=== PATIENT | male | born 1940 | race Two or more races ===

== ENCOUNTER 2017-01-23 21:15 | Inpatient (IN) | payer OTHER ==
[2017-01-23] MEDS ORDERED: MORPHINE SULFATE 4 MG/ML SYRINGE IV PRN (21:16)
[2017-01-23] MEDS ORDERED: HEPARIN SODIUM,PORCINE 5,000 UNIT/ML 1 ML VIAL IV ONE (21:16)
[2017-01-23] MEDS ORDERED: NITROGLYCERIN OINT 1 INCH/GM PACKET TOPICAL STA (21:16)
[2017-01-23] MEDS ORDERED: NITROGLYCERIN SL TABS 0.4 MG TAB SUBLINGUAL PRN (21:16)
[2017-01-23] MEDS ORDERED: HEPARIN SODIUM,PORCINE 5,000 UNIT/ML 1 ML VIAL IV PRN (21:16)
[2017-01-23] MEDS ORDERED: ASPIRIN 81 MG CHEW PO STA (21:16)
[2017-01-23] MEDS ORDERED: LABETALOL 5 MG/ML VIAL MDV IVP STA (21:24)
[2017-01-23] MEDS ORDERED: CLOPIDOGREL 75 MG TAB PO STA (21:30)
[2017-01-23] MEDS ORDERED: HEPARIN SODIUM,PORCINE/D5W PMX 25,000 UNIT in DEXTROSE/WATER 1 500ML.BAG IV SCH (21:30)
[2017-01-23 21:34] LABS: CH 30.1; CHCM 35.3; HCT 38.6 % (39.0-53.0); HDW 3.44; HGB 13.7 gm/dL (13.0-17.5); MCH 30.6 pg (25.0-35.0); MCHC 35.6 g/dL (31.0-37.0); MCV 85.9 fL (80.0-100.0); Poikilocytosis Slight; RBC 4.49 m/uL (4.30-5.90); RDW 13.2 % (11.5-15.5); WBC 10.2 k/uL (3.8-10.6)
[2017-01-23] MEDS ORDERED: ONDANSETRON 4 MG/2 ML VIAL IVP PRN (21:39)
--- NOTE | 2017-01-23 21:39 | ED ---
General Adult HPI - General Chief complaint: Dizziness Stated complaint: Syncope Time Seen by Provider: 01/23/17 21:16 Source: EMS, RN notes reviewed, old records reviewed Mode of arrival: EMS Limitations: no limitations - History of Present Illness Initial comments: This is a 76-year-old male to the ER for evaluation. This patient presents today for evaluation of near syncopal event. Patient has history of CAD, 3 stents, most Ran on 10 years ago. She was indented today after a long day of golf and had a syncopal event at the table. Patient said he felt very diaphoretic very lightheaded and weak. Family states he did pass out. Patient denied chest pain or shortness of breath. This is been taking all medications as prescribed. Again at this time he has no headache chest pain shortness of breath or abdominal pain. He did feel nauseous prior to the event and during the event, still feeling nauseous. - Related Data Allergies Allergy/AdvReac Type Severity Reaction Status Date / Time No Known Allergies Allergy Verified 01/23/17 21:29 Review of Systems ROS Statement: Those systems with pertinent positive or pertinent negative responses have been documented in the HPI. ROS Other: All systems not noted in ROS Statement are negative. Past Medical History Past Medical History: Hypertension History of Any Multi-Drug Resistant Organisms: None Reported Additional Past Surgical History / Comment(s): stent placement Past Psychological History: No Psychological Hx Reported Smoking Status: Never smoker Past Alcohol Use History: None Reported Past Drug Use History: None Reported General Exam Limitations: no limitations General appearance: alert, in no apparent distress, anxious Head exam: Present: atraumatic, normocephalic, normal inspection Eye exam: Present: normal appearance, PERRL, EOMI. Absent: scleral icterus, conjunctival injection, periorbital swelling ENT exam: Present: normal exam, mucous membranes moist Neck exam: Present: normal inspection. Absent: tenderness, meningismus, lymphadenopathy Respiratory exam: Present: normal lung sounds bilaterally. Absent: respiratory distress, wheezes, rales, rhonchi, stridor Cardiovascular Exam: Present: regular rate, normal rhythm, normal heart sounds. Absent: systolic murmur, diastolic murmur, rubs, gallop, clicks GI/Abdominal exam: Present: soft, normal bowel sounds. Absent: distended, tenderness, guarding, rebound, rigid Extremities exam: Present: normal inspection, full ROM, normal capillary refill. Absent: tenderness, pedal edema, joint swelling, calf tenderness Back exam: Present: normal inspection Neurological exam: Present: alert, oriented X3, CN II-XII intact Psychiatric exam: Present: normal affect, normal mood Skin exam: Present: warm, dry, intact, normal color. Absent: rash Course Vital Signs 01/23/17 21:17 Temperature 99.2 F Pulse Rate 88 Respiratory 20 Rate Blood Pressure 183/83 O2 Sat by Pulse 99 Oximetry Medical Decision Making - Medical Decision Making 76 male to the ED for evaluation of syncopal event. Patient had syncope with diaphoresis and weakness. Near syncope per patient but per bystanders he didn' t pass out. Patient denies chest pain but did become diaphoretic. Patient brought to emergency room, EKG shows no changes, will be admitted for cardiac observation - Radiology Data Radiology results: report reviewed (cxr negative for acute disease), image reviewed Critical Care Time Critical Care Time: Yes Total Critical Care Time: 31 Disposition Clinical Impression: Syncope Disposition: ADMITTED IP TO THIS [facility] Condition: Fair Referrals: None,Stated [Primary Care Provider] - 1-2 days
--- NOTE | 2017-01-23 21:40 | XR ---
EXAMINATION TYPE: XR chest 1V portable DATE OF EXAM: 01/23/2017 COMPARISON: NONE HISTORY: Pain TECHNIQUE: Single AP portable upright frontal view of the chest is obtained. FINDINGS: The hemidiaphragms are elevated at the moment of x-ray exposure, consistent with low lung inflation. This tends to crowd the pulmonary vasculature and so, therefore, no definite acute process . Nevertheless, there is subtle silhouetting of the pulmonary vasculature bilaterally and this can be seen with subtle interstitial phase pulmonary edema. There is no focal air space opacity, pleural effusion, or pneumothorax seen. The cardiac silhouette size is within normal limits. The osseous structures are intact. IMPRESSION: No definite acute process, as discussed.
[2017-01-23 21:42] LABS: ALT 39 U/L (21-72); AST 38 U/L (17-59); Alkaline Phosphatase 67 U/L (38-126); Anion Gap 12 mmol/L; Blood Urea Nitrogen 23 mg/dL (9-20); Calcium 9.9 mg/dL (8.4-10.2); Carbon Dioxide 26 mmol/L (22-30); Chloride 94 mmol/L (98-107); Glucose 151 mg/dL (74-99); Non-African American GFR(MDRD) 56 (>60 ml/min/1.73 sqM); Sodium 132 mmol/L (137-145); Total Bilirubin 1.2 mg/dL (0.2-1.3); Total Protein 6.8 g/dL (6.3-8.2)
[2017-01-23 21:43] LABS: INR 1.1 (<1.1); Partial Thromboplastin Time 23.2 sec (22.0-30.0)
[2017-01-23 21:44] LABS: Creatine Kinase 232 U/L (55-170)
[2017-01-23] MEDS ORDERED: POTASSIUM BICARB-CITRIC ACID 25 MEQ TABLET.EFF PO STA (21:47)
[2017-01-23 21:57] LABS: Troponin I <0.012 ng/mL (0.000-0.034)
[2017-01-23 22:00] LABS: Creatine Kinase MB 3.8 ng/mL (0.0-2.4)
[2017-01-23] MEDS: POTASSIUM CHLORIDE 20 MEQ, LIDOCAINE 2% INJ 20 MG in SODIUM CHLORIDE 0.9% 100 ML IVPB SCH ×2 (22:02→23:52)
--- NOTE | 2017-01-23 22:19 | CC ---
PLEASE TREAT THIS LIKE AN H&P This patient has a known case of coronary artery disease, status post prior angioplasty, status post prior multi-vessel angioplasty. He comes to hospital having had an episode of syncope. The patient has been in his usual state of health, active physically; played golf today and came home, felt nauseous, dizzy , and had a syncopal event. He recovered spontaneously, did not have any chest pain, focal neurological deficits or seizure disorder. EMS was called and he came to hospital. EKG does not reveal acute ST-segment elevation. It shows non- specific ST-T wave changes. The patient has known CAD, and a cardiac catheterization in 2004 revealed a 70% mid LAD, 80% ostial diagonal 2, diagonal 3 and 70% stenosis involved RCA and circumflex. Patient had angioplasty of right coronary artery and mid LAD. The second diagonal was lost at that time. He has a history of hypertension and dyslipidemia. For history, his blood pressures have been fairly well controlled. At the time of my evaluation in the emergency room, patient appears comfortable at rest, in sinus rhythm. Blood pressure is in the 180s systolic. He appears hemodynamically stable. Past medical history is significant for: 1. CAD, status post multi-vessel angioplasty. 2. Hypertension. 3. Dyslipidemia. Medications include: 1. Crestor. 2. Aspirin. 3. Perindopril indapamide. 4. Bisoprolol. ALLERGIES: HE DENIES ANY. FAMILY HISTORY: Negative for premature coronary artery disease. SOCIAL HISTORY: Negative for current smoking, ETOH abuse or drug abuse. REVIEW OF SYSTEMS: HEENT is unremarkable. CARDIAC: As described above. RESPIRATORY: Negative. GI: Negative. GENITOURINARY: Negative. ALLERGY/IMMUNOLOGY: Negative. SKIN: Negative. MUSCULOSKELETAL: Negative. ENDOCRINE: Negative. DERM: Negative. CONSTITUTIONAL: Negative. ONCOLOGICAL: Negative. [employer] [place]: Negative. Rest of the system review is not relevant. On exam, he is comfortable at rest. Heart rate is 80 beats per minute. Blood pressure is 180/70, respiratory rate 18. There is no jugular venous distention. Carotid upstroke is normal. There is no bruit. Chest exam reveals good air entry bilaterally. Heart exam reveals first and second heart sounds. No gallop. No murmur. No rub. Abdomen is soft, non-tender. Examination of extremities did not reveal edema. Peripheral pulses are felt. [employer] [place] exam did not reveal any focal neurological deficits. Labs are pending at this time. EKG shows sinus rhythm with non-specific ST-T wave changes. I do not see any acute ST-segment elevation. Compared to an old EKG that we had, it looks very similar. ASSESSMENT: 1. Syncope. 2. Coronary artery disease, status post multi-vessel angioplasty. 3. Hypertension. 4. Dyslipidemia. PLAN: Patient's syncope could be due to ventricular tachycardia, high-grade AV block that has resolved; could be vasovagal related to the nausea due to cardiac arrhythmia. I am going to obtain serial cardiac enzymes to rule out myocardial infarction, obtain an echocardiogram in the morning to assess LV function. 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 JEANNIE
[2017-01-23 22:32] VITALS: BMI 25.2
[2017-01-23] MEDS ORDERED: SODIUM CHLORIDE 0.9% 500 ML IV ONE (23:30)
[2017-01-24] MEDS: POTASSIUM CHLORIDE 20 MEQ, LIDOCAINE 2% INJ 20 MG in SODIUM CHLORIDE 0.9% 100 ML IVPB SCH (02:00)
[2017-01-24 06:08] LABS: Basophils % (A) 0 %; CH 30.5; CHCM 35.8; Eosinophils # (A) 0.1 k/uL (0-0.7); Eosinophils % (A) 1 %; HDW 3.35; HGB 13.2 gm/dL (13.0-17.5); Luc # (Auto) 0.15; Luc % (Auto) 2; Lymphocytes # (A) 1.3 k/uL (1.0-4.8); Lymphocytes % (A) 20 %; MCH 31.3 pg (25.0-35.0); MCHC 36.6 g/dL (31.0-37.0); MCV 85.6 fL (80.0-100.0); Mean Platelet Volume 8.1; Monocytes # (A) 0.5 k/uL (0-1.0); Monocytes % (A) 8 %; Neutrophils # (A) 4.5 k/uL (1.3-7.7); Neutrophils % (A) 68 %; RBC 4.21 m/uL (4.30-5.90); RDW 13.5 % (11.5-15.5); WBC 6.5 k/uL (3.8-10.6); WBC (Perox) 6.18
[2017-01-24 07:03] LABS: Anion Gap 9 mmol/L; Blood Urea Nitrogen 16 mg/dL (9-20); Calcium 9.7 mg/dL (8.4-10.2); Carbon Dioxide 25 mmol/L (22-30); Chloride 101 mmol/L (98-107); Cholesterol 73 mg/dL (<200); Glucose 95 mg/dL (74-99); HDL Cholesterol 38 mg/dL (40-60); Magnesium 1.7 mg/dL (1.6-2.3); Non-African American GFR(MDRD) >60 (>60 ml/min/1.73 sqM); Potassium 3.8 mmol/L (3.5-5.1); Sodium 135 mmol/L (137-145); Triglycerides 55 mg/dL (<150)
[2017-01-24 08:55] VITALS: BP 125/66; PULSE 68; RESP 18; TEMP 97.1
[2017-01-24] MEDS ORDERED: NON-FORMULARY DRUG (Rosuvastatin Calcium [Crestor] 5 MG) PO SCH (09:00)
[2017-01-24] MEDS ORDERED: LISINOPRIL 20 MG TAB PO SCH (09:00)
[2017-01-24] MEDS ORDERED: BISOPROLOL 5 MG TAB PO SCH (09:00)
[2017-01-24] MEDS ORDERED: INDAPAMIDE 2.5 MG TAB PO SCH (09:00)
[2017-01-24] MEDS ORDERED: ASPIRIN 325 MG TAB PO SCH (09:00)
[2017-01-24] MEDS ORDERED: EZETIMIBE 10 MG TAB PO SCH (09:00)
[2017-01-24] MEDS ORDERED: ATORVASTATIN 80 MG TAB PO SCH (09:00)
[2017-01-24] MEDS ORDERED: NON-FORMULARY DRUG (Ubidecarenone [Co Q-10] 100 MG) PO SCH (09:00)
--- NOTE | 2017-01-24 09:20 | DS ---
DATE OF ADMISSION: 01/23/2017 DATE OF DISCHARGE: 01/24/2017 ADMITTING DIAGNOSIS: Syncope. HOSPITAL COURSE: This is a 76-year-old gentleman with history of multiple known multivessel coronary artery who is status post multivessel angioplasty who presented to hospital having had an episode of syncope. His EKG did not reveal acute ischemic changes. Initial troponin was negative. Potassium was low and BUN and creatinine were elevated suggestive of intravascular volume depletion. Was admitted to hospital to rule out myocardial infarction. Through night he has done well, has not had any symptoms. Did not have tachybrady arrhythmias. Cardiac enzymes have been negative. He received potassium supplements and the potassium this morning is normal at 3.8. BUN and creatinine are normal at 16 and 1. His LDL cholesterol is 24. Hemoglobin is normal at 13.2. There are multiple etiological possibilities for his syncope including vasovagal syncope, syncope related to hypertension and related to intravascular volume depletion. Could be ventricular tachycardia given the small area of ischemia noted on his last stress test. Could be due to transient high-grade AV block and his initial presentation. We we going to do cardiac catheterization on him per his wishes, we decided not to. This morning he is doing well and the plan at this stage is to discharge him home and pursue his workup in [place] from where he comes. I reviewed his records from [place] including his most recent stress test, echocardiogram and angiographic data. Patient had an echo on this admission that showed normal LV function and wall motion and the RV systolic pressure is normal. Condition at the time of discharge, comfortable at rest, vital signs are stable , there is no jugular venous distension. Carotid upstroke is normal. There is no bruit. The chest exam reveals good air entry bilaterally. Heart exam reveals first and second heart sounds. No gallop, no murmur. Abdomen is soft. Exam of the extremities did not reveal any edema. Peripheral pulses are felt. Medications on discharge: He will go home on: 1. Zetia. 2. ( ). 3. Crestor. 4. Aspirin. He is a combination of diuretic and Otis inhibitor and I am going to advise him the future just to have the Otis inhibitor given the intravascular volume depletion and hyperkalemia noted. Discharge medications are as charted. 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 JEANNIE
--- NOTE | 2017-01-24 09:57 | ECHOF ---
Referral Reason:syncope MEASUREMENTS -------- HEIGHT: 170.2 cm WEIGHT: 72.6 kg BP: 131/65 IVSd: 1.0 cm (0.6 - 1.1) LVIDd: 4.1 cm (3.9 - 5.3) LVPWd: 1.0 cm (0.6 - 1.1) LVIDs: 2.7 cm LA Diam: 3.1 cm (2.7 - 3.8) RVIDd: 2.4 cm (< 3.3) LAESV Index (A-L): 20.30 ml/m Ao Diam: 3.2 cm (2.0 - 3.7) AV Cusp: 1.2 cm (1.5 - 2.6) EPSS: 0.6 cm MV E Moe: 0.90 m/s MV DecT: 256 ms MV A Moe: 0.87 m/s MV E/A Ratio: 1.02 MV EF SLOPE: 93.07 mm/s (70 - 150) MV EXCURSION: 18.89 mm (> 18.000) FINDINGS -------- Sinus rhythm. This was a technically good study. The left ventricular size is normal. Left ventricular wall thickness is normal. Overall left ventricular systolic function is normal with, an EF between 60 - 65 %. The right ventricle is normal in size and function. Normal LA size by volume 22+/-6 ml/m2. The right atrium is normal in size. Aortic valve is trileaflet and is mildly thickened. Mild mitral annular calcification present. There is trace mitral regurgitation. The tricuspid valve appears structurally normal. Trace/mild (physiologic) pulmonic regurgitation. The aortic root size is normal. Normal inferior vena cava with normal inspiratory collapse consistent with estimated right atrial pressure of 5 mmHg. There is no pericardial effusion. CONCLUSIONS -------- 1. Sinus rhythm. 2. There is trace mitral regurgitation. 3. The tricuspid valve appears structurally normal. 4. Trace/mild (physiologic) pulmonic regurgitation. 5. The aortic root size is normal. 6. Normal inferior vena cava with normal inspiratory collapse consistent with estimated right atrial pressure of 5 mmHg. 7. There is no pericardial effusion. 8. This was a technically good study. 9. The left ventricular size is normal. 10. Left ventricular wall thickness is normal. 11. Overall left ventricular systolic function is normal with, an EF between 60 - 65 %. 12. The right ventricle is normal in size and function. 13. Normal LA size by volume 22+/-6 ml/m2. 14. Aortic valve is trileaflet and is mildly thickened. 15. Mild mitral annular calcification present. FILM MAKER: Zenobia Gamboa RDCS
== END 2017-01-24 09:13 | disposition home or self-care (01) | DRG 641 ==
LOC: SUPCPDRO 21:15 → EC 21:15 → 6SEL 21:18
PROVIDERS: ADMIT Internal Medicine Cardiovascular Disease; ATTEND Internal Medicine Cardiovascular Disease
DX: E86.9 Volume depletion, unspecified (principal); I10 Essential (primary) hypertension; R55 Syncope and collapse; E78.5 Hyperlipidemia, unspecified; I25.10 Atherosclerotic heart disease of native coronary artery without angina pectoris; Z79.82 Long term (current) use of aspirin; Z79.899 Other long term (current) drug therapy
CPT/HCPCS: 36415; 71010; 80048; 80053; 80061; 82550; 82553; 83735; 84484; 85025; 85027; 85610; 85730; 93005; 93306; 96365; 96375; 96376; 99285